=== PATIENT | female | born 1995 | race Caucasian/White ===

== ENCOUNTER 2022-12-07 20:57 | Emergency (ER) | payer MEDICAID ==
[~2022-12-07] VITALS: Ht 157.5 cm; Wt 74.0 kg
[2022-12-07 21:28] VITALS: BP 105/65
== END 2022-12-08 05:44 | disposition left against medical advice (07) ==
LOC: ER 20:57
DX: Z53.21 Procedure and treatment not carried out due to patient leaving prior to being seen by health care provider (principal)
CPT/HCPCS: 99281